=== PATIENT | male | born 1970 ===

== ENCOUNTER 2017-05-19 01:56 | Emergency (ER) | payer SELFPAY ==
--- NOTE | 2017-05-19 02:07 | ED CLINICAL REPORT ---
Clinical Report - Physicians/Mid Levels [facility] [address] [place] [address] 05/19/2017 1:56 Patient: TONG BEE I Time Seen: 0201. Arrived- Police present. Historian- patient (Police). HISTORY OF PRESENT ILLNESS Location of injuries- (Bilateral Lower Extremities and Left Shoulder.). Chief Complaint: BITE (Abrasions from Blackberry Carballo and PossibleDog Bite.). The injury occurred just prior to arrival. The animal reportedly appeared well and is up to date on immunizations. This was a "provoked" [place]. [place] No dizziness, fainting episodes or difficulty breathing. He has not had swelling or trouble swallowing. Treatment INSPECTOR MISSILE- none. REVIEW OF SYSTEMS No swelling, numbness, headache, difficulty breathing or weakness. No tingling, chest pain, nausea, fever or joint pain. No enlarged lymph nodes, abdominal pain, vomiting or chills. All systems otherwise negative, except as recorded above. PAST HISTORY See nurses notes. Tetanus immunization status is up-to-date. Additional Surgeries: no known surgeries. Medications: Tagamet HB Oral. Rosibel-D Allergy & Congestion Oral. Allergies: No Known Drug Allergy. SOCIAL HISTORY Smoker- current status unknown. Alcohol use. No drug use. Is a local resident. ADDITIONAL NOTES The nursing notes have been reviewed. PHYSICAL EXAM Vital Signs: 05/19/2017 02:18 RR: 15. Pain level now: 0/10. 05/19/2017 01:57 BP: 156/97. HR: 120. RR: 15. O2 saturation: 98%. Temp: 99.2 F. Pain level now: 0/10. Blood pressure normal. Oxygen saturation normal. Appearance: Alert. Oriented X3. No acute distress. (Pleasant. Appropriate. Polite.). Head: Head normal on inspection and non-tender. No Gleason's sign or raccoon eyes. Eyes: Eyes normal inspection. ENT: Ears normal on inspection. Nose normal on inspection. Mouth normal on inspection. No hemotympanum. Neck: Normal inspection. No decreased ROM in the neck. Neck non-tender. Painless ROM. No vertebral tenderness. CVS: Heart sounds normal. Pulses normal. Respiratory: Chest normal on inspection. Breath sounds normal. Chest nontender. Abdomen: Normal inspection. Soft and nontender. Bowel sounds normal. Back: Normal inspection. No tenderness. ROM normal. Skin: Skin intact. Skin warm and dry. Normal skin color. Normal skin turgor. (Except for Superficial Abrasions Noted on the Bilateral Lower Extremities. No Signs of Infection. No Foreign Bodies.). Extremities: Normal inspection. Pelvis stable. Extremities atraumatic. No lower extremity edema. Neuro: [place] Coma Scale: 15- eyes open spontaneously (4); best verbal response- oriented x 3 (5); best motor response- obeys commands (6). Oriented X 3. No motor deficit. No sensory deficit. Reflexes normal. PROGRESS AND PROCEDURES Course of Care: The Patient Is a 46-year-old Male Presenting for Evaluation of Being Cleared to Book. Per Police, Patient Was Hiding in the kompany. Patient Was Pulled Out Of the Bushes by the Canine Unit. Patient Reports No Other Pain or Injury at This Time. Because of the Potential Risk of Dog Saliva and Drink the Patient's Abrasions, Patient Will Be Covered with Augmentin. Patient Has No Puncture Wounds orObvious Signs of Trauma from the Encounter with the Canine Unit However. Patient Is Reporting No Discomfort or Pain at This Time. Patient Is Otherwise Appropriate. Patient Does Not Appear to Be Intoxicated. Patient Tolerated Medications Well. Had Discussion with the Patient in Regards to His Workup Here in Emergency Department Including Diagnosis, Home Care, Follow-Up, and Return Precautions Particularly Wound Infection Risk. All Questions Have Been Answered. The Patient Expressed Understanding of These Instructions and Was Agreeable to Them. Prior to Patient's Departure from the Emergency Department Is Noted. Walking and in No Acute Distress. Patient Is Nontoxic in Appearance. Patient Is Stable Outpatient Candidate. CLINICAL IMPRESSION Multiple superficial abrasions. (from [place] bushes with possible contamination with dog saliva). INSTRUCTIONS (patient is cleared to book from emergency department standpoint). Warnings: GENERAL WARNINGS: Return or contact your physician immediately if your condition worsens or changes unexpectedly, if not improving as expected, or if other problems arise. Specifically return if pain, vomiting, bleeding, breathing difficulty or fever. Prescription Medications: Augmentin 875 mg: take 1 tablet orally every 12 hours for 10 days. No refill. Substitution is permissible. OTC Medications: Acetaminophen (available over the counter): take according to label instructions. Motrin (available over the counter): take according to label instructions. Follow-up: Follow up with your doctor in three days. Reason for referral: recheck today's concerns. Summary of care provided to patient via paper. Screening today revealed the patient's blood pressure to be in the normal range. The patient should follow up with a primary care provider for blood pressure management. (Electronically signed by Giorgio Pineda Dr. 05/20/2017 6:44)
--- NOTE | 2017-05-19 02:07 | ED NURSING NOTES ---
Clinical Report - Nurses [facility] [address] [place] [address] 05/19/2017 1:56 Patient: TONG BEE I TRIAGE Triage time 01:58. Chief Complaint: ABRASION (pt was laying in bushes and Police dog found him. Pt has superficial abrasions on legs, back, & left ear.). --02:02 Helen Garcia R.N. 01:57 05/19/17. BP: 156/97. HR: 120. RR: 15. O2 saturation: 98% on room air. Temp: 99.2 F (temporal). Pain level now: 0/10. --02:02 Helen Garcia R.N. Weight: 70.3 kg stated. Height/Length: 66 inches Per Patient. BMI: 25. --02:01 Helen Garcia R.N. Medications Rosibel-D Allergy & Congestion Oral. --01:59 Helen Garcia R.N. Tagamet HB Oral. --01:59 Helen Garcia R.N. Allergies No Known Drug Allergy. --01:59 Helen Garcia R.N. History Historian: patient. Arrived in police custody. Primary physician ([place]). Location of injuries: left ear, mid-back, right flank, right leg and left leg. This occurred today. PAST MEDICAL HX: Tetanus status: up-to-date. SOCIAL HX: Light tobacco smoker (cigarette)- less than 1/2 a pack per day. Occasional alcohol use. Patient smells of ETOH in the emergency department. No drug use. --02:02 Helen Garcia R.N. PROBLEMS: Gastroesophageal Reflux Disease. --02:00 Helen Garcia R.N. ADDITIONAL SURGERIES: no known surgeries. PHYSICAL ASSESSMENT Ambulatory to room. Patient gowned. GENERAL / NEURO / PSYCH: Alert. Oriented X 4. Appears in no acute distress. RESPIRATORY: Respirations not labored. CVS: Capillary refill less than 2 seconds. SKIN: Skin is warm and dry. Bleeding is present. (left ear). --02:03 Helen Garcia R.N. NURSING PROGRESS NOTES Two patient identifiers checked. Call light placed in reach. Side rails up x 1. Bed placed in lowest position. Brakes of bed on. --02:03 Helen Garcia R.N. Patient ready for evaluation- chart flagged. --02:03 Helen Garcia R.N. 02:15 05/19/2017 Augmentin (Amoxicillin-Pot Clavulanate) PO Tablets 875 mg given. Allergies verified and confirmed 5 rights. --02:17 Helen Garcia R.N. DISPOSITION / DISCHARGE Condition at departure: stable. No learning barriers present. Discharge instructions provided and reviewed with the patient (arresting officer). Reviewed medication(s) side effects, precautions, dosing and course information. Prescription(s) given to the learning support resource room teacher. Verbalized understanding. Written instructions provided in Lao. Verbalized understanding (arresting officer). The patient was discharged to police department facility. He left the Emergency Department ambulatory and via police department vehicle. --05:14 Helen Garcia R.N. 02:18 05/19/17. BP: deferred. HR: deferred. RR: 15. O2 saturation: deferred. Temp: deferred. Pain level now: 0/10. --05:14 Helen Garcia R.N. Departure time: 0220. --05:15 Helen Garcia R.N. Locked/Released at 05/19/2017 5:15 by Helen Garcia R.N.
--- NOTE | 2017-05-19 02:07 | ED NURSING NOTES ---
Clinical Report - Nurses [facility] [address] [place] [address] 05/19/2017 1:56 Patient: TONG BEE I TRIAGE Triage time 01:58. Chief Complaint: ABRASION (pt was laying in bushes and Police dog found him. Pt has superficial abrasions on legs, back, & left ear.). --02:02 Helen Garcia R.N. 01:57 05/19/17. BP: 156/97. HR: 120. RR: 15. O2 saturation: 98% on room air. Temp: 99.2 F (temporal). Pain level now: 0/10. --02:02 Helen Garcia R.N. Weight: 70.3 kg stated. Height/Length: 66 inches Per Patient. BMI: 25. --02:01 Helen Garcia R.N. Medications Rosibel-D Allergy & Congestion Oral. --01:59 Helen Garcia R.N. Tagamet HB Oral. --01:59 Helen Garcia R.N. Allergies No Known Drug Allergy. --01:59 Helen Garcia R.N. History Historian: patient. Arrived in police custody. Primary physician ([place]). Location of injuries: left ear, mid-back, right flank, right leg and left leg. This occurred today. PAST MEDICAL HX: Tetanus status: up-to-date. SOCIAL HX: Light tobacco smoker (cigarette)- less than 1/2 a pack per day. Occasional alcohol use. Patient smells of ETOH in the emergency department. No drug use. --02:02 Helen Garcia R.N. PROBLEMS: Gastroesophageal Reflux Disease. --02:00 Helen Garcia R.N. ADDITIONAL SURGERIES: no known surgeries. PHYSICAL ASSESSMENT Ambulatory to room. Patient gowned. GENERAL / NEURO / PSYCH: Alert. Oriented X 4. Appears in no acute distress. RESPIRATORY: Respirations not labored. CVS: Capillary refill less than 2 seconds. SKIN: Skin is warm and dry. Bleeding is present. (left ear). --02:03 Helen Garcia R.N. NURSING PROGRESS NOTES Two patient identifiers checked. Call light placed in reach. Side rails up x 1. Bed placed in lowest position. Brakes of bed on. --02:03 Helen Garcia R.N. Patient ready for evaluation- chart flagged. --02:03 Helen Garcia R.N. 02:15 05/19/2017 Augmentin (Amoxicillin-Pot Clavulanate) PO Tablets 875 mg given. Allergies verified and confirmed 5 rights. --02:17 Helen Garcia R.N. DISPOSITION / DISCHARGE Condition at departure: stable. No learning barriers present. Discharge instructions provided and reviewed with the patient (arresting officer). Reviewed medication(s) side effects, precautions, dosing and course information. Prescription(s) given to the awning installer. Verbalized understanding. Written instructions provided in Kenyan. Verbalized understanding (arresting officer). The patient was discharged to police department facility. He left the Emergency Department ambulatory and via police department vehicle. --05:14 Helen Garcia R.N. 02:18 05/19/17. BP: deferred. HR: deferred. RR: 15. O2 saturation: deferred. Temp: deferred. Pain level now: 0/10. --05:14 Helen Garcia R.N. Departure time: 0220. --05:15 Helen Garcia R.N. Locked/Released at 05/19/2017 5:15 by Helen Garcia R.N.
--- NOTE | 2017-05-19 02:07 | ED CLINICAL REPORT ---
Clinical Report - Physicians/Mid Levels [facility] [address] [place] [address] 05/19/2017 1:56 Patient: TONG BEE I Time Seen: 0201. Arrived- Police present. Historian- patient (Police). HISTORY OF PRESENT ILLNESS Location of injuries- (Bilateral Lower Extremities and Left Shoulder.). Chief Complaint: BITE (Abrasions from Blackberry Carballo and PossibleDog Bite.). The injury occurred just prior to arrival. The animal reportedly appeared well and is up to date on immunizations. This was a "[place]" [place] No dizziness, fainting episodes or difficulty breathing. He has not had swelling or trouble swallowing. Treatment RESTAURANT BARTENDER- none. REVIEW OF SYSTEMS No swelling, numbness, headache, difficulty breathing or weakness. No tingling, chest pain, nausea, fever or joint pain. No enlarged lymph nodes, abdominal pain, vomiting or chills. All systems otherwise negative, except as recorded above. PAST HISTORY See nurses notes. Tetanus immunization status is up-to-date. Additional Surgeries: no known surgeries. Medications: Tagamet HB Oral. Rosibel-D Allergy & Congestion Oral. Allergies: No Known Drug Allergy. SOCIAL HISTORY Smoker- current status unknown. Alcohol use. No drug use. Is a local resident. ADDITIONAL NOTES The nursing notes have been reviewed. PHYSICAL EXAM Vital Signs: 05/19/2017 02:18 RR: 15. Pain level now: 0/10. 05/19/2017 01:57 BP: 156/97. HR: 120. RR: 15. O2 saturation: 98%. Temp: 99.2 F. Pain level now: 0/10. Blood pressure normal. Oxygen saturation normal. Appearance: Alert. Oriented X3. No acute distress. (Pleasant. Appropriate. Polite.). Head: Head normal on inspection and non-tender. No Gleason's sign or raccoon eyes. Eyes: Eyes normal inspection. ENT: Ears normal on inspection. Nose normal on inspection. Mouth normal on inspection. No hemotympanum. Neck: Normal inspection. No decreased ROM in the neck. Neck non-tender. Painless ROM. No vertebral tenderness. CVS: Heart sounds normal. Pulses normal. Respiratory: Chest normal on inspection. Breath sounds normal. Chest nontender. Abdomen: Normal inspection. Soft and nontender. Bowel sounds normal. Back: Normal inspection. No tenderness. ROM normal. Skin: Skin intact. Skin warm and dry. Normal skin color. Normal skin turgor. (Except for Superficial Abrasions Noted on the Bilateral Lower Extremities. No Signs of Infection. No Foreign Bodies.). Extremities: Normal inspection. Pelvis stable. Extremities atraumatic. No lower extremity edema. Neuro: [place] Coma Scale: 15- eyes open spontaneously (4); best verbal response- oriented x 3 (5); best motor response- obeys commands (6). Oriented X 3. No motor deficit. No sensory deficit. Reflexes normal. PROGRESS AND PROCEDURES Course of Care: The Patient Is a 46-year-old Male Presenting for Evaluation of Being Cleared to Book. Per Police, Patient Was Hiding in the [place]. Patient Was Pulled Out Of the Bushes by the Canine Unit. Patient Reports No Other Pain or Injury at This Time. Because of the Potential Risk of Dog Saliva and Drink the Patient's Abrasions, Patient Will Be Covered with Augmentin. Patient Has No Puncture Wounds orObvious Signs of Trauma from the Encounter with the Canine Unit However. Patient Is Reporting No Discomfort or Pain at This Time. Patient Is Otherwise Appropriate. Patient Does Not Appear to Be Intoxicated. Patient Tolerated Medications Well. Had Discussion with the Patient in Regards to His Workup Here in Emergency Department Including Diagnosis, Home Care, Follow-Up, and Return Precautions Particularly Wound Infection Risk. All Questions Have Been Answered. The Patient Expressed Understanding of These Instructions and Was Agreeable to Them. Prior to Patient's Departure from the Emergency Department Is Noted. Walking and in No Acute Distress. Patient Is Nontoxic in Appearance. Patient Is Stable Outpatient Candidate. CLINICAL IMPRESSION Multiple superficial abrasions. (from [employer] bushes with possible contamination with dog saliva). INSTRUCTIONS (patient is cleared to book from emergency department standpoint). Warnings: GENERAL WARNINGS: Return or contact your physician immediately if your condition worsens or changes unexpectedly, if not improving as expected, or if other problems arise. Specifically return if pain, vomiting, bleeding, breathing difficulty or fever. Prescription Medications: Augmentin 875 mg: take 1 tablet orally every 12 hours for 10 days. No refill. Substitution is permissible. OTC Medications: Acetaminophen (available over the counter): take according to label instructions. Motrin (available over the counter): take according to label instructions. Follow-up: Follow up with your doctor in three days. Reason for referral: recheck today's concerns. Summary of care provided to patient via paper. Screening today revealed the patient's blood pressure to be in the normal range. The patient should follow up with a primary care provider for blood pressure management. (Electronically signed by Giorgio Pineda Dr. 05/20/2017 6:44)
--- NOTE | 2017-05-20 06:44 | ED DISCHARGE INSTRUCTIONS ---
Patient: TONG BEE I General Instructions [facility] VisitID: [id number] [address] [place] [address] 46y, M Registration Date/Time: 05/19/2017 Multiple superficial abrasions. INSTRUCTIONS (patient is cleared to book from emergency department standpoint). Warnings: GENERAL WARNINGS: Return or contact your physician immediately if your condition worsens or changes unexpectedly, if not improving as expected, or if other problems arise. Specifically return if pain, vomiting, bleeding, breathing difficulty or fever. Prescription Medications: Augmentin 875 mg: take 1 tablet orally every 12 hours for 10 days. No refill. Substitution is permissible. OTC Medications: Acetaminophen (available over the counter): take according to label instructions. Motrin (available over the counter): take according to label instructions. Follow-up: Follow up with your doctor in three days. Reason for referral: recheck today's concerns. Summary of care provided to patient via paper. Screening today revealed the patient's blood pressure to be in the normal range. The patient should follow up with a primary care provider for blood pressure management. ADDITIONAL INFORMATION Abrasions Abrasions are skin scrapes. Their treatment depends on how large and deep the abrasion is. Home Care: If you were given a bandage, change it once a day. If your bandage sticks to the wound, soak it in warm water until it loosens. Wash the area with soap and water to remove all the cream/ointment. You may do this in a sink, under a tub faucet or shower. Rinse off the soap and pat dry with a clean towel. Reapply cream/ointment according to your doctor's instructions. This will prevent infection and help prevent the bandage from sticking. Cover the wound with a fresh non-stick bandage (Telfa). Repeat steps 1 to 4 daily, or as directed by your doctor. If the bandage becomes wet or dirty, change it as soon as possible. You may use acetaminophen (Tylenol) or ibuprofen (Motrin, Advil) to control pain, unless another pain medicine was prescribed. [ NOTE : If you have chronic liver or kidney disease or ever had a stomach ulcer or GI bleeding, talk with your doctor before using these medicines.] Do not use ibuprofen in children under six months of age. Follow Up with your physician or this facility as directed by our staff. Most skin wounds heal within ten days. However, an infection may occur despite proper treatment. Therefore, look for the early signs of infection listed below. Get Prompt Medical Attention if any of the following occur: Increasing pain in the wound Increasing redness or swelling Pus coming from the wound Fever of 100.4F (38C) or higher, or as directed by your healthcare provider Amoxicillin Trihydrate, Clavulanate Potassium Oral tablet What is this medicine? AMOXICILLIN; CLAVULANIC ACID (a mox i DANA in; GINA graham bri ic id) is a penicillin antibiotic. It is used to treat certain kinds of bacterial infections. It will not work for colds, flu, or other viral infections. How should I use this medicine? Take this medicine by mouth with a full glass of water. Follow the directions on the prescription label. Take at the start of a meal. Do not crush or chew. If the tablet has a score line, you may cut it in half at the score line for easier swallowing. Take your medicine at regular intervals. Do not take your medicine more often than directed. Take all of your medicine as directed even if you think you are better. Do not skip doses or stop your medicine early. Talk to your sensor specialist regarding the use of this medicine in children. Special care may be needed. What side effects may I notice from receiving this medicine? Side effects that you should report to your doctor or health pediatric critical care nurse as soon as possible: allergic reactions like skin rash, itching or hives, swelling of the face, lips, or tongue breathing problems dark urine fever or chills, sore throat redness, blistering, peeling or loosening of the skin, including inside the mouth seizures trouble passing urine or change in the amount of urine unusual bleeding, bruising unusually weak or tired white patches or sores in the mouth or throat Side effects that usually do not require medical attention (report to your doctor or health pediatric critical care nurse if they continue or are bothersome): diarrhea dizziness headache nausea, vomiting stomach upset vaginal or anal irritation What may interact with this medicine? allopurinol anticoagulants control pills methotrexate probenecid What if I miss a dose? If you miss a dose, take it as soon as you can. If it is almost time for your next dose, take only that dose. Do not take double or extra doses. Where should I keep my medicine? Keep out of the reach of children. Store at room temperature below 25 degrees C (77 degrees F). Keep container tightly closed. Throw away any unused medicine after the expiration date. What should I tell my health care provider before I take this medicine? They need to know if you have any of these conditions: bowel disease, like colitis kidney disease liver disease mononucleosis an unusual or allergic reaction to amoxicillin, penicillin, cephalosporin, other antibiotics, clavulanic acid, other medicines, foods, dyes, or preservatives or trying to get breast-feeding What should I watch for while using this medicine? Tell your doctor or health pediatric critical care nurse if your symptoms do not improve. Do not treat diarrhea with over the counter products. Contact your doctor if you have diarrhea that lasts more than 2 days or if it is severe and watery. If you have diabetes, you may get a false-positive result for sugar in your urine. Check with your doctor or health pediatric critical care nurse. control pills may not work properly while you are taking this medicine. Talk to your doctor about using an extra method of control. You have been given the following additional information: Abrasion Amoxicillin Trihydrate, Clavulanate Potassium Oral tablet (Electronically signed by Giorgio Pineda Dr. 05/20/2017 6:44)
--- NOTE | 2017-05-20 06:44 | ED ORDER SUMMARY ---
..... Patient: TONG BEE I OrderSheet [facility] VisitID: [id number] [address] [place] [address] 46y, M Registration Date/Time: 05/19/2017 ORDER SHEET Weight: 70.3 kg (stated) Allergies: No Known Drug Allergy GENERAL ORDERS: Irrigate Wounds (02:08 05/19/2017 Margret Howe) (Ack 2:13 OSnell) (2:17 RCollier R.N.) Dress Wounds (02:05/19/2017 Margret Howe) (Ack 2:13 OSnell) (2:17 RCollier R.N.) MEDICATION ORDERS: Augmentin PO 875 mg (NOW) (02:08 05/19/2017 Margret Howe) (Ack 2:13 RCollier R.N.) (2:17 RCollier R.N.) IV FLUIDS: ORDER SHEET NOTES: [Electronically signed by Helen Garcia R.N. (05:15 05/19/2017)] [Electronically signed by Giorgio Pineda Dr. (06:44 05/20/2017)] [Electronically locked/signed by Helen Garcia R.N. (05:15 05/19/2017)]
--- NOTE | 2017-05-20 06:44 | ED MAR SUMMARY ---
..... Medication Administration Record [facility] [address] [place] [address] Patient: TONG BEE I Visit ID: [id number] 46y, M Weight: 70.3 kg Height/Length: 66 in BMI: 25 ALLERGIES: No Known Drug Allergy Given 02:15 05/19/2017 Helen Garcia RKimNKim Medication Administered: AUGMENTIN [PO] (AMOXICILLIN-POT CLAVULANATE), Dose: 875 mg Tablets PO. Medication Ordered: Augmentin PO 875 mg (NOW).
--- NOTE | 2017-05-20 06:44 | ED MED RECONCILIATION SUMMARY ---
Patient: TONG BEE I Medication Reconciliation Report [facility] VisitID: [id number] [address] [place] [address] 46y, M Registration Date/Time: 05/19/2017 Weight: 70.3 kg Height/Length: 66 in. BMI: 25.0 ALLERGIES: No Known Drug Allergy The patient's Home Medications are listed below: THE FOLLOWING MEDICATIONS NEED TO BE RECONCILED: Rosibel-D Allergy & Congestion Oral Tagamet HB Oral The source(s) of the original Home Medication information: Not obtained. The following Medications were given to the patient in the Emergency Department: Augmentin [PO] PO 875 mg, administered: 05/19/2017 2:15:00 AM The following Medications were prescribed to the patient: Acetaminophen (available over the counter): take according to label instructions. -- Giorgio Pineda Dr. Motrin (available over the counter): take according to label instructions. -- Giorgio Pineda Dr. Augmentin 875 mg: take 1 tablet orally every 12 hours for 10 days. No refill. Substitution is permissible. -- Giorgio Pineda Dr.
--- NOTE | 2017-05-20 06:44 | ED ORDER SUMMARY ---
..... Patient: TONG BEE I OrderSheet [facility] VisitID: [id number] [address] [place] [address] 46y, M Registration Date/Time: 05/19/2017 ORDER SHEET Weight: 70.3 kg (stated) Allergies: No Known Drug Allergy GENERAL ORDERS: Irrigate Wounds (02:08 05/19/2017 Margret Howe) (Ack 2:13 OSnell) (2:17 RCollier R.N.) Dress Wounds (02:05/19/2017 Margret Howe) (Ack 2:13 OSnell) (2:17 RCollier R.N.) MEDICATION ORDERS: Augmentin PO 875 mg (NOW) (02:08 05/19/2017 Margret Howe) (Ack 2:13 RCollier R.N.) (2:17 RCollier R.N.) IV FLUIDS: ORDER SHEET NOTES: [Electronically signed by Helen Garcia R.N. (05:15 05/19/2017)] [Electronically signed by Giorgio Pineda Dr. (06:44 05/20/2017)] [Electronically locked/signed by Helen Garcia R.N. (05:15 05/19/2017)]
--- NOTE | 2017-05-20 06:44 | ED DISCHARGE INSTRUCTIONS ---
Patient: TONG BEE I General Instructions [facility] VisitID: [id number] [address] [place] [address] 46y, M Registration Date/Time: 05/19/2017 Multiple superficial abrasions. INSTRUCTIONS (patient is cleared to book from emergency department standpoint). Warnings: GENERAL WARNINGS: Return or contact your physician immediately if your condition worsens or changes unexpectedly, if not improving as expected, or if other problems arise. Specifically return if pain, vomiting, bleeding, breathing difficulty or fever. Prescription Medications: Augmentin 875 mg: take 1 tablet orally every 12 hours for 10 days. No refill. Substitution is permissible. OTC Medications: Acetaminophen (available over the counter): take according to label instructions. Motrin (available over the counter): take according to label instructions. Follow-up: Follow up with your doctor in three days. Reason for referral: recheck today's concerns. Summary of care provided to patient via paper. Screening today revealed the patient's blood pressure to be in the normal range. The patient should follow up with a primary care provider for blood pressure management. ADDITIONAL INFORMATION Abrasions Abrasions are skin scrapes. Their treatment depends on how large and deep the abrasion is. Home Care: If you were given a bandage, change it once a day. If your bandage sticks to the wound, soak it in warm water until it loosens. Wash the area with soap and water to remove all the cream/ointment. You may do this in a sink, under a tub faucet or shower. Rinse off the soap and pat dry with a clean towel. Reapply cream/ointment according to your doctor's instructions. This will prevent infection and help prevent the bandage from sticking. Cover the wound with a fresh non-stick bandage (Telfa). Repeat steps 1 to 4 daily, or as directed by your doctor. If the bandage becomes wet or dirty, change it as soon as possible. You may use acetaminophen (Tylenol) or ibuprofen (Motrin, Advil) to control pain, unless another pain medicine was prescribed. [ NOTE : If you have chronic liver or kidney disease or ever had a stomach ulcer or GI bleeding, talk with your doctor before using these medicines.] Do not use ibuprofen in children under six months of age. Follow Up with your physician or this facility as directed by our staff. Most skin wounds heal within ten days. However, an infection may occur despite proper treatment. Therefore, look for the early signs of infection listed below. Get Prompt Medical Attention if any of the following occur: Increasing pain in the wound Increasing redness or swelling Pus coming from the wound Fever of 100.4F (38C) or higher, or as directed by your healthcare provider Amoxicillin Trihydrate, Clavulanate Potassium Oral tablet What is this medicine? AMOXICILLIN; CLAVULANIC ACID (a mox i DANA in; GINA graham bri ic id) is a penicillin antibiotic. It is used to treat certain kinds of bacterial infections. It will not work for colds, flu, or other viral infections. How should I use this medicine? Take this medicine by mouth with a full glass of water. Follow the directions on the prescription label. Take at the start of a meal. Do not crush or chew. If the tablet has a score line, you may cut it in half at the score line for easier swallowing. Take your medicine at regular intervals. Do not take your medicine more often than directed. Take all of your medicine as directed even if you think you are better. Do not skip doses or stop your medicine early. Talk to your bakery pastry internship regarding the use of this medicine in children. Special care may be needed. What side effects may I notice from receiving this medicine? Side effects that you should report to your doctor or health animal care provider as soon as possible: allergic reactions like skin rash, itching or hives, swelling of the face, lips, or tongue breathing problems dark urine fever or chills, sore throat redness, blistering, peeling or loosening of the skin, including inside the mouth seizures trouble passing urine or change in the amount of urine unusual bleeding, bruising unusually weak or tired white patches or sores in the mouth or throat Side effects that usually do not require medical attention (report to your doctor or health animal care provider if they continue or are bothersome): diarrhea dizziness headache nausea, vomiting stomach upset vaginal or anal irritation What may interact with this medicine? allopurinol anticoagulants control pills methotrexate probenecid What if I miss a dose? If you miss a dose, take it as soon as you can. If it is almost time for your next dose, take only that dose. Do not take double or extra doses. Where should I keep my medicine? Keep out of the reach of children. Store at room temperature below 25 degrees C (77 degrees F). Keep container tightly closed. Throw away any unused medicine after the expiration date. What should I tell my health care provider before I take this medicine? They need to know if you have any of these conditions: bowel disease, like colitis kidney disease liver disease mononucleosis an unusual or allergic reaction to amoxicillin, penicillin, cephalosporin, other antibiotics, clavulanic acid, other medicines, foods, dyes, or preservatives or trying to get breast-feeding What should I watch for while using this medicine? Tell your doctor or health animal care provider if your symptoms do not improve. Do not treat diarrhea with over the counter products. Contact your doctor if you have diarrhea that lasts more than 2 days or if it is severe and watery. If you have diabetes, you may get a false-positive result for sugar in your urine. Check with your doctor or health animal care provider. control pills may not work properly while you are taking this medicine. Talk to your doctor about using an extra method of control. You have been given the following additional information: Abrasion Amoxicillin Trihydrate, Clavulanate Potassium Oral tablet (Electronically signed by Giorgio Pineda Dr. 05/20/2017 6:44)
--- NOTE | 2017-05-20 06:44 | ED MAR SUMMARY ---
..... Medication Administration Record [facility] [address] [place] [place] [address] Patient: TONG BEE I Visit ID: [id number] 46y, M Weight: 70.3 kg Height/Length: 66 in BMI: 25 ALLERGIES: No Known Drug Allergy Given 02:15 05/19/2017 Helen Garcia RKimNKim Medication Administered: AUGMENTIN [PO] (AMOXICILLIN-POT CLAVULANATE), Dose: 875 mg Tablets PO. Medication Ordered: Augmentin PO 875 mg (NOW).
--- NOTE | 2017-05-20 06:44 | ED MED RECONCILIATION SUMMARY ---
Patient: TONG BEE I Medication Reconciliation Report [facility] VisitID: [id number] [address] [place] [address] 46y, M Registration Date/Time: 05/19/2017 Weight: 70.3 kg Height/Length: 66 in. BMI: 25.0 ALLERGIES: No Known Drug Allergy The patient's Home Medications are listed below: THE FOLLOWING MEDICATIONS NEED TO BE RECONCILED: Rosibel-D Allergy & Congestion Oral Tagamet HB Oral The source(s) of the original Home Medication information: Not obtained. The following Medications were given to the patient in the Emergency Department: Augmentin [PO] PO 875 mg, administered: 05/19/2017 2:15:00 AM The following Medications were prescribed to the patient: Acetaminophen (available over the counter): take according to label instructions. -- Giorgio Pineda Dr. Motrin (available over the counter): take according to label instructions. -- Giorgio Pineda Dr. Augmentin 875 mg: take 1 tablet orally every 12 hours for 10 days. No refill. Substitution is permissible. -- Giorgio Pineda Dr.
== END 2017-05-19 02:18 ==
LOC: ED SRH 01:56
DX: S80.811A Abrasion, right lower leg, initial encounter (principal); S80.812A Abrasion, left lower leg, initial encounter; X58.XXXA Exposure to other specified factors, initial encounter; Y93.9 Activity, unspecified; Y92.9 Unspecified place or not applicable; Y99.9 Unspecified external cause status; K21.9 Gastro-esophageal reflux disease without esophagitis; Z79.899 Other long term (current) drug therapy